=== PATIENT | female | born 1945 | race Caucasian/White ===

== ENCOUNTER 2017-04-04 08:39 | Outpatient (CLI) | payer OTHER | END 2017-04-04 20:03 | disposition home or self-care (01) | LOC: SMA 08:39 | PROVIDERS: ATTEND Internal Medicine | DX: Z12.31 Encounter for screening mammogram for malignant neoplasm of breast (principal) | CPT/HCPCS: G0202 ==

== ENCOUNTER 2020-04-02 08:35 | Outpatient (CLI) | payer OTHER | END 2020-04-02 21:16 | disposition home or self-care (01) | LOC: SMA 08:35 | PROVIDERS: ATTEND Internal Medicine | DX: Z12.31 Encounter for screening mammogram for malignant neoplasm of breast (principal) | CPT/HCPCS: 77067 ==